=== PATIENT | female | born 1945 | race Two or more races ===

== ENCOUNTER 2024-07-03 11:48 | Emergency (ER) | payer OTHER ==
[~2024-07-03] VITALS: Ht 160 cm; Wt 72.6 kg
[2024-07-03] MEDS ORDERED: PROAIR RESPICL90 MCG IH (13:14)
[2024-07-03] MEDS ORDERED: NEURONTIN300 MG PO (13:16)
[2024-07-03] MEDS ORDERED: LEVALBUTEROL HCL 1.25 MG/3 ML SOLUTION IH STA (13:36)
[2024-07-03] MEDS ORDERED: BUDESONIDE 0.5 MG/2 ML AMPUL.NEB IH STA (13:36)
[2024-07-03] MEDS ORDERED: METHYLPREDNISOLONE SOD SUCC 125 MG VIAL IV STA (13:37)
[2024-07-03] MEDS ORDERED: HYDROCODONE/CHLORPHEN P-STIREX 5 ML ML PO STA (13:37)
[2024-07-03 14:46] LABS: HEMATOCRIT 43.8 % (36.0-45.00); HEMOGLOBIN 14.3 g/dL (12.0-15.00); MEAN CELL VOLUME 93.1 fL (80.00-100.00); MEAN CORPUSCULAR HEMOGLOBIN 30.4 pg (27.00-32.0); MEAN CORPUSCULAR HGB CONC 32.6 g/dl (32.0-36.0); PLATELET COUNT 185 K/uL (150-450); RED CELL DISTRIBUTION WIDTH 13.1 % (11.5-14.5)
== END 2024-07-03 18:14 | disposition home or self-care (01) ==
LOC: ER 11:51
PROVIDERS: General Practice
DX: R53.81 Other malaise (principal); J45.909 Unspecified asthma, uncomplicated; I10 Essential (primary) hypertension; Z88.0 Allergy status to penicillin
CPT/HCPCS: 36415; 71045; 94640; 96365; 99283; J3490